=== PATIENT | male | born 1965 | race Hispanic/Latino ===

== ENCOUNTER 2021-07-05 16:31 | Emergency (ER) | payer OTHER ==
[~2021-07-05] VITALS: Ht 167.6 cm; Wt 104.3 kg
[2021-07-05 16:37] VITALS: BP 139/94
[2021-07-05] MEDS ORDERED: MUPI22O TP (16:57)
[2021-07-05] MEDS ORDERED: CEPH500B PO (16:57)
[2021-07-05] MEDS ORDERED: CEPHALEXIN 500 MG CAPSULE PO ONE (17:00)
== END 2021-07-05 17:09 | disposition home or self-care (01) ==
LOC: EDH 16:31
DX: S30.817A Abrasion of anus, initial encounter (principal); I10 Essential (primary) hypertension; Z91.041 Radiographic dye allergy status; X58.XXXA Exposure to other specified factors, initial encounter; Y93.89 Activity, other specified; Y92.89 Other specified places as the place of occurrence of the external cause; Y99.8 Other external cause status

== ENCOUNTER 2023-03-19 22:57 | Emergency (ER) | payer BC, OTHER ==
[~2023-03-19] VITALS: Ht 167.6 cm; Wt 96.2 kg
[~2023-03-19 22:57] MED LIST: CEPH500B PO; MUPI22O TP
[2023-03-19 23:21] VITALS: BP 165/91; PULSE 97; RESP 18; O2SAT 98
[2023-03-20] MEDS ORDERED: CEFAZOLIN SODIUM 1 GM VIAL IM ONE (01:00)
[2023-03-20] MEDS ORDERED: MORPHINE 4 MG SYG IM ONE (01:00)
[2023-03-20] MEDS ORDERED: KETOROLAC 60 MG VIAL (30MG/ML) IM ONE (01:00)
[2023-03-20] MEDS ORDERED: ACET-2079 PO (01:55)
== END 2023-03-20 02:09 | disposition home or self-care (01) ==
LOC: EDH 22:57
DX: S02.32XA Fracture of orbital floor, left side, initial encounter for closed fracture (principal); S22.32XA Fracture of one rib, left side, initial encounter for closed fracture; R04.0 Epistaxis; E66.9 Obesity, unspecified; R07.81 Pleurodynia; Z79.899 Other long term (current) drug therapy; Z98.890 Other specified postprocedural states; Z91.040 Latex allergy status; W18.39XA Other fall on same level, initial encounter; Y93.89 Activity, other specified; Y92.89 Other specified places as the place of occurrence of the external cause; Y99.8 Other external cause status
CPT/HCPCS: 99284; 70450; 71045; 71100; 72125; 70486; 96372 ×3; J0690; J2270; J1885

== ENCOUNTER 2023-04-28 13:52 | Emergency (ER) | payer BC ==
[~2023-04-28] VITALS: Ht 167.6 cm; Wt 99.8 kg
[~2023-04-28 13:52] MED LIST changes: +ACET-2079 PO
[2023-04-28] MEDS ORDERED: 0.9%NACL 1000ML 1,000 ML IV ONE (14:30)
[2023-04-28] MEDS ORDERED: ONDANSETRON 4MG INJ IVP ONE (14:30)
[2023-04-28 15:17] LABS: APPEARANCE,URINE CLOUDY (CLEAR); BILIRUBIN,URINE NEGATIVE (NEGATIVE); COLOR,URINE LIGHT-YELLOW (YELLOW); GLUCOSE, URINE (UA) NEGATIVE (NEGATIVE); KETONES,URINE NEGATIVE (NEGATIVE); LEUKOCYTE ESTERASE ,URINE NEGATIVE Leu/uL (NEGATIVE); NITRATE,URINE NEGATIVE (NEGATIVE); OCCULT BLOOD,URINE NEGATIVE (NEGATIVE); PH,URINE 5.5 (5.0-8.0); PROTEIN,URINE NEGATIVE (NEGATIVE); UROBILINOGEN,URINE 0.2 mg/dL (0.2-1.0)
[2023-04-28 15:22] LABS: ADD UA MICROSCOPIC YES
[2023-04-28 15:25] LABS: AMPHET/METH SCREEN,URINE NEGATIVE (NEGATIVE); BARBITURATE SCREEN, URINE NEGATIVE (NEGATIVE); BENZODIAZEPINES SCREEN,URINE NEGATIVE (NEGATIVE); CANNABINOID SCREEN,URINE NEGATIVE (NEGATIVE); COCAINE SCREEN,URINE POSITIVE (NEGATIVE); OPIATE SCREEN,URINE NEGATIVE (NEGATIVE); PHENCYCLIDINE SCREEN,URINE NEGATIVE (NEGATIVE)
[2023-04-28 15:30] LABS: BACTERIA,URINE RARE /HPF (None Seen); MUCUS,URINE RARE LPF (None Seen); UNCLASSIFIED CRYSTAL 22 /HPF (None Seen); YEAST,URINE BUDDING FEW /HPF (None Seen)
[2023-04-28 15:42] LABS: CREATININE 0.7 mg/dL (0.5-1.5); POTASSIUM 4.5 mmol/L (3.5-5.1)
[2023-04-28 15:45] LABS: ALBUMIN 3.5 g/dL (3.5-5.0); BILIRUBIN,TOTAL 0.9 mg/dL (0.2-1.0); TOTAL PROTEIN, SERUM 7.9 g/dL (6.0-8.3)
[2023-04-28 16:09] LABS: BASOPHILS # (AUTO) 0.04 K/uL (0.00-0.20); BASOPHILS % (AUTO) 0.7 % (0.0-5.0); EOSINOPHILS % (AUTO) 1.8 % (0.0-8.0); HEMATOCRIT 38.8 % (42-54); IMMATURE GRANULOCYTE ABSOLUTE 0.02 K/uL (0-1); LYMPHOCYTES # (AUTO) 1.2 K/uL (1.0-4.8); LYMPHOCYTES % (AUTO) 22.2 % (21.0-51.0); MEAN CORPUSCULAR HEMOGLOBIN 32.9 pg (27.0-33.0); MEAN CORPUSCULAR HGB CONC 35.1 g/dL (32.0-36.0); MEAN CORPUSCULAR VOLUME 93.7 fL (79-99); MONOCYTES # (AUTO) 0.7 K/uL (0.1-1.0); MONOCYTES % (AUTO) 11.6 % (3.0-13.0); NEUTROPHILS # (AUTO) 3.5 K/uL (1.8-7.7); NEUTROPHILS % (AUTO) 63.3 % (40.0-77.0); PLATELET COUNT (AUTO) 156 K/uL (130-400); RED BLOOD CELL COUNT(AUTO) 4.14 MIL/uL (4.50-6.20); RED CELL DISTRIBUTION WIDTH 12.6 % (11.0-15.5); WHITE BLOOD COUNT (AUTO) 5.6 K/uL (4.8-10.8)
[2023-04-28 16:52] VITALS: BP 148/112; PULSE 76; RESP 18; O2SAT 98
== END 2023-04-28 17:00 | disposition home or self-care (01) ==
LOC: EDH 13:52
DX: F14.90 Cocaine use, unspecified, uncomplicated (principal); I10 Essential (primary) hypertension; E66.9 Obesity, unspecified; Z91.041 Radiographic dye allergy status; Z68.35 Body mass index [BMI] 35.0-35.9, adult
CPT/HCPCS: 99284; 96374; 71045; 96361; 82550; 84484; 80053; 80305; 83690; 85025; 85378; 81001; 36415; 93005; J7030; J2405